=== PATIENT | female | born 1990 | race Caucasian/White ===

== ENCOUNTER 2018-02-09 06:59 | Inpatient (IN) ==
[2018-02-09] MEDS ORDERED: CITRIC ACID/SODIUM CITRATE 30 ML UDCUP PO ONE (07:14)
[2018-02-09] MEDS ORDERED: FAMOTIDINE 20 MG/2 ML VIAL IV ONE (07:14)
[2018-02-09] MEDS ORDERED: ceFAZolin 2,000 MG in PREMIX 1 EACH IV ONE (07:14)
[2018-02-09] MEDS ORDERED: OXYTOCIN 10 UNIT/ML VIAL IM ONE (07:17)
[2018-02-09] MEDS ORDERED: OXYTOCIN/LR 30 UNIT/1,000 ML BAG IV ONE (07:17)
[2018-02-09] MEDS ORDERED: LACTATED RINGERS 1,000 ML IV SCH ×3 (07:30→17:30)
[2018-02-09] MEDS ORDERED: LACTATED RINGERS 1,000 ML IV ONE (07:31)
[2018-02-09 07:40] LABS: Basophils % 0.2 % (0.0-0.8); Eosinophils % 0.4 % (0.00-10.9); Hematocrit 31.8 VOL% (35.7-47.0); Immature Granulocytes % 0.7 %; Immature Granulocytes Absolute 0.06 #; Lymphocytes # 1.8 10*3/uL (1.4-4.0); Lymphocytes % 19.5 % (21.3-54.2); Mean Corpuscular HGB Conc 31.4 GM/DL (32-36); Mean Corpuscular Hemoglobin 26 PG (27-34); Mean Corpuscular Volume 82.4 FL (87-102); Mean Platelet Volume 11.2 FL (9.6-12.0); Monocytes # 0.8 10*3/uL (0.11-0.8); Monocytes % 8.2 % (1.7-12.7); Neutrophils # 6.5 10*3/uL (1.4-7.4); Platelet Count 193 T/CUMM (130-400); Red Blood Count 3.86 MC/CUMM (3.8-5.5); Red Cell Distribution Width 14.7 % (9.3-17.3); White Blood Count 9.2 T/CUMM (4-12)
[2018-02-09 08:10] LABS: Albumin 2.7 G/DL (3.4-5.0); Bilirubin,Total 0.6 MG/DL (0.2-1.0); Calcium 8.6 MG/DL (8.5-10.1); Osmolality,Calculated 274.5 MOS/KG (273-304); Potassium 3.9 MMOL/L (3.5-5.1); Total Protein 7.5 G/DL (6.4-8.3)
[2018-02-09] MEDS ORDERED: ONDANSETRON 4 MG/2 ML VIAL ONE ×2 (09:37→10:49)
[2018-02-09] MEDS ORDERED: BUPIVACAINE SPINAL 0.75% 2 ML AMP SPINAL ONE (09:37)
[2018-02-09 10:48] LABS: Cord Venous Blood PCO2 38.4 MMHG; Cord Venous Blood PO2 35.8 MMHG
[2018-02-09] MEDS ORDERED: MORPHINE 10 MG/10 ML VIAL ONE (10:48)
[2018-02-09] MEDS ORDERED: diphenhydrAMINE 50 MG/1 ML VIAL ONE (10:49)
[2018-02-09] MEDS ORDERED: MIDAZOLAM 2 MG/2 ML VIAL ONE (10:49)
[2018-02-09 10:54] LABS: Apearance,Urine CLEAR (Clear); Bacteria,Urine Occasional /HPF (Few); Bilirubin,Urine Negative (Negative); Blood, Urine Negative (Negative); Glucose,Urine (UA) Negative (Negative); Ketones,Urine Negative (Negative); Mucus,Urine Occasional /LPF (Occasional); Nitrite,Urine Negative (Negative); Protein,Urine Negative; RBC,Urine 1 /HPF (0-4); Urine Color Yellow (Yellow); Urine Specific Gravity 1.014 (1.001-1.035); Urine Urobilinogen < 2.0 EU/DL (0.2-1.0); WBC,Urine 7 /HPF (0-6)
[2018-02-09] MEDS ORDERED: OXYTOCIN/LR 20 UNIT/1,000 ML BAG IV ONE (11:15)
[2018-02-09] MEDS ORDERED: diphenhydrAMINE 50 MG/1 ML VIAL IV PRN ×2 (12:00→12:03)
[2018-02-09] MEDS ORDERED: HYDROmorphone 2 MG/1 ML VIAL IV PRN (12:03)
[2018-02-09] MEDS ORDERED: hydrOXYzine HCL 25 MG/1 ML VIAL IM PRN ×2 (12:03→14:17)
[2018-02-09] MEDS ORDERED: ONDANSETRON 4 MG/2 ML VIAL IV PRN ×2 (12:03→14:15)
[2018-02-09] MEDS ORDERED: ACETAMINOPHEN 500 MG TABLET PO PRN (12:05)
[2018-02-09] MEDS ORDERED: SODIUM CHLORIDE 0.9% 1,000 ML IV SCH (12:30)
[2018-02-09] MEDS ORDERED: MAGNESIUM HYDROXIDE SUSP 30 ML UDCUP PO PRN (14:15)
[2018-02-09] MEDS ORDERED: RHO(D) IMMUNE GLOBULIN 300 MCG SYRINGE IM ONE (14:15)
[2018-02-09] MEDS ORDERED: SIMETHICONE CHEW 80 MG TABLET PO PRN (14:15)
[2018-02-09] MEDS ORDERED: ACETAMINOPHEN 325 MG TABLET PO PRN (14:15)
[2018-02-09] MEDS ORDERED: ceFAZolin 1,000 MG in SYRINGE 1 EACH IV SCH (14:30)
[2018-02-09] MEDS: ceFAZolin 1,000 MG in SYRINGE 1 EACH IV SCH (17:26)
[2018-02-09 19:32] LABS: Basophils % 0.3 % (0.0-0.8); Eosinophils # 0.1 10*3/uL (0.0-0.87); Eosinophils % 0.4 % (0.00-10.9); Hematocrit 27.5 VOL% (35.7-47.0); Hemoglobin 8.5 GM/DL (12.0-16.0); Immature Granulocytes % 0.5 %; Immature Granulocytes Absolute 0.06 #; Lymphocytes # 2.1 10*3/uL (1.4-4.0); Lymphocytes % 17.6 % (21.3-54.2); Mean Corpuscular HGB Conc 30.9 GM/DL (32-36); Mean Corpuscular Hemoglobin 26 PG (27-34); Mean Corpuscular Volume 83.6 FL (87-102); Mean Platelet Volume 11.2 FL (9.6-12.0); Monocytes # 0.6 10*3/uL (0.11-0.8); Monocytes % 5.2 % (1.7-12.7); Neutrophils # 8.8 10*3/uL (1.4-7.4); Platelet Count 157 T/CUMM (130-400); Red Blood Count 3.29 MC/CUMM (3.8-5.5); Red Cell Distribution Width 14.7 % (9.3-17.3); White Blood Count 11.6 T/CUMM (4-12)
[2018-02-09] MEDS: DOCUSATE SODIUM 100 MG CAPSULE PO SCH (20:24)
[2018-02-09] MEDS: IBUPROFEN 800 MG TABLET PO PRN (20:24)
[2018-02-10] MEDS ORDERED: HydrOXYzine PAMOATE 25 MG CAPSULE PO PRN (00:32)
[2018-02-10] MEDS: ceFAZolin 1,000 MG in SYRINGE 1 EACH IV SCH (00:34)
[2018-02-10 04:36] LABS: Basophils % 0.3 % (0.0-0.8); Eosinophils # 0.1 10*3/uL (0.0-0.87); Hematocrit 27.1 VOL% (35.7-47.0); Hemoglobin 8.5 GM/DL (12.0-16.0); Immature Granulocytes % 0.5 %; Immature Granulocytes Absolute 0.05 #; Lymphocytes # 2.1 10*3/uL (1.4-4.0); Lymphocytes % 20.3 % (21.3-54.2); Mean Corpuscular HGB Conc 31.4 GM/DL (32-36); Mean Corpuscular Hemoglobin 26 PG (27-34); Mean Corpuscular Volume 82.6 FL (87-102); Mean Platelet Volume 11.4 FL (9.6-12.0); Monocytes # 0.6 10*3/uL (0.11-0.8); Monocytes % 6.2 % (1.7-12.7); Neutrophils # 7.3 10*3/uL (1.4-7.4); Neutrophils % 71.7 % (38.7-73.9); Platelet Count 145 T/CUMM (130-400); Red Blood Count 3.28 MC/CUMM (3.8-5.5); Red Cell Distribution Width 14.8 % (9.3-17.3); White Blood Count 10.1 T/CUMM (4-12)
[2018-02-10] MEDS: IBUPROFEN 800 MG TABLET PO PRN ×2 (06:12→18:25)
[2018-02-10] MEDS ORDERED: MULTIVITAMIN (PRENATAL) TABLET PO SCH (09:00)
[2018-02-10] MEDS: DOCUSATE SODIUM 100 MG CAPSULE PO SCH ×2 (10:02→21:36)
[2018-02-10] MEDS: MAGNESIUM HYDROXIDE SUSP 30 ML UDCUP PO SCH ×2 (10:03→21:36)
[2018-02-10] MEDS: METOCLOPRAMIDE 10 MG/2 ML VIAL IV SCH ×2 (10:03→18:26)
[2018-02-10] MEDS: FERROUS SULFATE 325 MG TABLET PO SCH ×2 (10:03→21:36)
[2018-02-10] MEDS: SIMETHICONE CHEW 80 MG TABLET PO SCH ×3 (17:59→21:36)
[2018-02-11] MEDS: SIMETHICONE CHEW 80 MG TABLET PO SCH (05:10)
[2018-02-11] MEDS: IBUPROFEN 800 MG TABLET PO PRN (06:11)
[2018-02-11] MEDS: METOCLOPRAMIDE 10 MG/2 ML VIAL IV SCH (06:13)
[2018-02-11 08:20] VITALS: BP 127/74
[2018-02-11] MEDS: DOCUSATE SODIUM 100 MG CAPSULE PO SCH (08:53)
[2018-02-11] MEDS: FERROUS SULFATE 325 MG TABLET PO SCH (08:53)
[2018-02-11] MEDS ORDERED: DIPH/TET/ACEL PERT BOOSTER VACCINE 0.5 ML VIAL IM ONE (09:12)
== END 2018-02-11 11:10 | disposition home or self-care (01) | DRG 766 ==
LOC: N.LDOUT 06:59 → N.LD 07:00 → N.OB 14:15
PROVIDERS: ADMIT Obstetrics & Gynecology; ATTEND Obstetrics & Gynecology